=== PATIENT | female | born 1985 | race Caucasian/White ===

== ENCOUNTER 2020-06-27 17:54 | Observation (INO) | payer BC ==
[2020-06-27 18:44] VITALS: BMI 32.5
[2020-06-27 19:47] LABS: ALT (SGPT) 7 U/L (8-55); AST (SGOT) 11 U/L (5-34); Albumin 3.1 g/dL (3.5-5.0); Alkaline Phosphatase 112 U/L (40-110); Anion Gap 14 mmol/L (10-20); BUN (Urea Nitrogen) 7 mg/dL (7.0-18.7); Bilirubin, Total 0.3 mg/dL (0.2-1.2); Calc. Creatinine Clearance 199 mL/min (70-130); Calcium 8.8 mg/dL (7.8-10.44); Carbon Dioxide 19 mmol/L (22-29); Chloride 108 mmol/L (98-107); Estimated GFR-MDRD Greater than 90; Glucose 74 mg/dL (70-105); Potassium 3.9 mmol/L (3.5-5.1); Protein, Total 6.1 g/dL (6.0-8.3); Sodium 137 mmol/L (136-145); Uric Acid 4.3 mg/dL (2.6-6.0)
[2020-06-27 19:51] LABS: Creatinine, Urine 31.78 mg/dL (47-110); Protein, Urine Random Quant Less than 10 mg/dL (1-14)
--- NOTE | 2020-06-27 20:06 | ULT ---
ULTRASOUND BIOPHYSICAL PROFILE: 06/27/20 HISTORY: Pre-eclampsia. FINDINGS: A single live intrauterine gestation is seen with heart rate of 140 beats per minute. GUSTAVO measu res 16.5 cm. Placenta is anteriorly located without evidence of placenta previa. OB BIOPHYSICAL PROFILE: tone: 2 breathin movement: 2 Amniotic fluid: 2 IMPRESSION: Ultrasound biophysical profile score is 8 out of 8. POS: MZA
[2020-06-27] MEDS ORDERED: Betamet Acet/Betamet Na Ph 30 MG/5 ML VIAL IM SCH (20:30)
[2020-06-28 02:16] VITALS: TEMP 98.3
[2020-06-28 08:28] VITALS: BP 143/77
[2020-06-28] MEDS ORDERED: NIFEdipine XL 30 MG TAB PO SCH (09:00)
--- NOTE | 2020-06-28 14:11 | PDOC.LDHP ---
Labor and Delivery H&P HPI: 35 y/o at 34 and 4/7 weeks, presents to L&D complaining of high BP readings at home, along with mild Headache, Nausea. Patient has a history of Gastric Bypass, Hyperthyroidsism, Now Hypothyroidism, Ectopic s/p Salpyngectomy, and hx of Preeclampsia. She also has a previous hx of Chronic Hypertension - mostly improved after weight loss, with normal BP noted early in , but BP now trending upwards, with etiology pointing towards additional weight gain and increased maternal cardiac demand, rather than recurrent preeclampsia at this time. Protein in urine is almost undetectable today. CMP and Uric Acid both normal today. DTR's appear normal at this time. BPP was 8/8 tonight. After a long discussion with the patient and this evening, we have decided to admit patient for observation, start BMZ course x2 doses, and initiate Prcardia XL 30mg q Day - as used previously in prior p regnancy. If BP stabilizes, will consider discharging patient to home on modified bedrest, on Procardia XL, and with clinic Follow UP Next week. Patient is hoping for TOLAC as per our last conversation today regarding mode of delivery. Current gestational age (weeks): 34 Due date: 08/04/20 Grav: 4 Para: 2 Current complications: hypertension Abnormal US findings: No Current medications: pre-angeline vitamins Previous surgical history: low tranverse CS Allergies/Adverse Reactions: Allergies Allergy/AdvReac Type Severity Reaction Status Date / Time codeine Allergy Hives Verified 06/27/20 18:45 Social history: none - Physical Exam Vital signs reviewed and normal: yes General: NAD, resting, breathing through contractions Heart: RRR Lungs: nonlabored breathing Abdomen: NTTP Extremeties: trace edema FHT: category 1
--- NOTE | 2020-06-28 15:02 | PDOC.EVN ---
Event Note - Event Note Event Note: 35 y/o at 34 and 5/7 weeks, presented yesterday to L&D complaining of high BP readings at home, along with mild Headache, Nausea. Patient has a history of Gastric Bypass, Hyperthyroidsism, Now Hypothyroidism, Ectopic s/p Salpyngectomy, and hx of Preeclampsia, and Chronic Hypertension. She has had normal BP noted early in , but BP now trending upwards, with etiology pointing towards additional weight gain and increased maternal cardiac demand, rather than recurrent preeclampsia at this time. Protein in urine is almost undetectable today. CMP and Uric Acid both last nightg. DTR's appear normal at this time. BPP was 8/8 yesterday\ BMZ course x2 doses ordered. Procardia XL 30mg q Day started (used previously in prior with success). BP now stable. The pal is to discharge the patient to home after 2nd BMZ dose tonight, on modified bedrest, on Procardia XL 30mg po QD, and with clinic Follow UP Next week. Patient is hoping for TOLAC as per our last conversation today regarding mode of delivery.
== END 2020-06-28 20:45 | disposition home or self-care (01) ==
LOC: L&D/OP 17:54 → L&D 20:09 → L&D/OP 06-28 21:00
PROVIDERS: ADMIT Obstetrics & Gynecology; ATTEND Obstetrics & Gynecology
DX: O10.913 Unspecified pre-existing hypertension complicating pregnancy, third trimester (principal); O99.89 Other specified diseases and conditions complicating pregnancy, childbirth and the puerperium; R51 Headache; R11.0 Nausea; O99.283 Endocrine, nutritional and metabolic diseases complicating pregnancy, third trimester; E03.9 Hypothyroidism, unspecified; O34.211 Maternal care for low transverse scar from previous cesarean delivery; O99.843 Bariatric surgery status complicating pregnancy, third trimester; Z3A.34 34 weeks gestation of pregnancy; Z79.899 Other long term (current) drug therapy; Z88.5 Allergy status to narcotic agent
CPT/HCPCS: 36415; 76819; 80053; 82570; 84156; 84550; 96372; 99285; G0378; J0702

== ENCOUNTER 2020-07-02 17:08 | Inpatient (IN) | payer BC, OTHER ==
[~2020-07-02 17:08] MED LIST: Bupivacaine/Epinephrine 0.25% 30 ML VIAL ONE
[2020-07-02 17:52] VITALS: BMI 33.0
[2020-07-02] MEDS ORDERED: Ibuprofen 800 MG TAB PO PRN (18:02)
[2020-07-02] MEDS ORDERED: Misoprostol 200 MCG TAB PR PRN (18:02)
[2020-07-02] MEDS ORDERED: Lidocaine 1% (PF) 30 ML VIAL SC PRN (18:02)
[2020-07-02] MEDS ORDERED: Diphenoxylate HCl/Atropine Tablet PO PRN ×2 (18:02)
[2020-07-02] MEDS ORDERED: NS / Oxytocin 40 units/1000ml 1,000 ML IV PRN (18:02)
[2020-07-02] MEDS ORDERED: Carboprost 250 MCG/ML AMP IM PRN (18:02)
[2020-07-02] MEDS ORDERED: Labetalol HCl 100 MG/20 ML VIAL ONE (18:03)
[2020-07-02] MEDS ORDERED: Butorphanol Tartrate 1 MG/ML VIAL SLOW IVP PRN (18:05)
[2020-07-02] MEDS ORDERED: Docusate 100 MG CAP PO PRN (18:05)
[2020-07-02] MEDS ORDERED: hydrALAZINE 20 MG/ML VIAL SLOW IVP PRN (18:05)
[2020-07-02] MEDS ORDERED: Ondansetron PF 4 MG/2 ML Vial IVP PRN (18:05)
[2020-07-02] MEDS ORDERED: Promethazine HCl 25 MG/ML VIAL IM PRN (18:05)
[2020-07-02] MEDS ORDERED: NS w/ Oxytocin 10 units 500 ML IV SCH (18:15)
[2020-07-02] MEDS ORDERED: Penicillin G Potassium 5 MILL.UNITS in Sodium Chloride 0.9% 100 ML IVPB SCH (18:15)
[2020-07-02] MEDS: Lactated Ringer's 1,000 ML IV SCH (18:45)
[2020-07-02] MEDS ORDERED: Calcium Gluc 4.6 MEQ/10 ML (100 MG/ML) SLOW IVP PRN (18:52)
[2020-07-02] MEDS ORDERED: Magnesium Sulfate 20 GM/WATER 500 ML BAG IVPB SCH (19:00)
[2020-07-02 19:09] LABS: Creatinine, Urine 78.29 mg/dL (47-110)
[2020-07-02 20:40] LABS: Hemoglobin 9.8 g/dL (12.0-16.0); Mean Corpuscular HGB CONC 33.2 g/dL (32.0-36.0); Mean Corpuscular Hemoglobin 29.7 pg (27.0-31.0); Mean Corpuscular Volume 89.2 fL (78.0-98.0); Mean Platelet Volume 8.9 fL (7.4-10.4); Platelet Count 211 thou/uL (130-400); RBC Distribution Width 11.8 % (11.5-14.5); Red Blood Cell (RBC) Count 3.31 mill/uL (4.20-5.40); White Blood Cell (WBC) Count 7.2 thou/uL (4.8-10.8)
[2020-07-02 21:01] LABS: ALT (SGPT) 11 U/L (8-55); AST (SGOT) 14 U/L (5-34); Albumin 3.1 g/dL (3.5-5.0); Alkaline Phosphatase 115 U/L (40-110); Anion Gap 14 mmol/L (10-20); BUN (Urea Nitrogen) 9 mg/dL (7.0-18.7); Bilirubin, Total 0.3 mg/dL (0.2-1.2); Calc. Creatinine Clearance 202 mL/min (70-130); Calcium 8.5 mg/dL (7.8-10.44); Carbon Dioxide 20 mmol/L (22-29); Chloride 107 mmol/L (98-107); Estimated GFR-MDRD Greater than 90; Globulin 2.9 g/dL (2.4-3.5); Glucose 70 mg/dL (70-105); Potassium 3.7 mmol/L (3.5-5.1); Sodium 137 mmol/L (136-145); Uric Acid 4.3 mg/dL (2.6-6.0)
[2020-07-02 21:19] LABS: Syphilis Antibody Nonreactive (Nonreactive); Syphilis Antibody Index 0.04 S/CO (<1.00 Non-Reactive)
[2020-07-02 22:29] LABS: HBSAg Index 0.17 S/CO (0-0.99); Hep B Surf Ag Non-Reactive S/CO (NonReactive)
[2020-07-03] MEDS: NS w/ Oxytocin 10 units 500 ML IV SCH ×2 (00:25→16:03)
[2020-07-03] MEDS: Acetaminophen 500 MG TAB PO PRN ×2 (00:57→06:39)
[2020-07-03 01:11] VITALS: TEMP 98.1
[2020-07-03] MEDS: Magnesium Sulfate 20 gm/500 ml 20 GM/500 ML BAG IVPB SCH ×2 (04:26→14:46)
[2020-07-03] MEDS: Penicillin G 2.5 MILL.units 2.5 MILL.UNITS in Premix Bag 1 BAG IVPB SCH ×4 (04:27→18:55)
[2020-07-03] MEDS: Lactated Ringer's 1,000 ML IV SCH (07:53)
--- NOTE | 2020-07-03 10:06 | PDOC.LDHP ---
Labor and Delivery H&P HPI: 35 y/o at 35 and 2/7 weeks, with BP now 180s/100s in clinic, c/o of headache all day since she woke up. this increase in BP is despite starting Procardia XL 30mg 5 days ago, initially with excellent BPs. I feel this patient is developing Severe Preeclampsia, with neurological symptoms. She had Preeclampsia previously. BMZ x 2 doses completed last week. We will admit, start magnesium sulfate, and start pitocin. Patient desires a TOLAC. Patient completed BMZ x 2 doses last week, and started Procardia XL 30mh po qd - but BPs are now far more elevated despite therapy. Current gestational age (weeks): 35 Due date: 08/04/20 Grav: 4 Para: 2 Current complications: preeclampsia with severe features, other (Hx of gastric Bypass, hx Right Ectopic with salpyngectomy, hx od preeclampsia, hx of chronic HTN, resolved first 20 weeks of this after weight loss following bariatric surgery.) Abnormal US findings: No Previous surgical history: low tranverse CS Allergies/Adverse Reactions: Allergies Allergy/AdvReac Type Severity Reaction Status Date / Time codeine Allergy Hives Verified 06/27/20 18:45 Social history: none - Physical Exam Vital signs reviewed and normal: yes General: NAD, resting, breathing through contractions Heart: RRR Lungs: CTAB Abdomen: gravid Extremeties: no edema FHT: category 1 - Assessment 1. Severe Preeclampsia with neurological features - moderate persistent headache. 2. Desires TOLAC - Plan Plan: admit to L&D, cervical ripening
[2020-07-03 12:02] LABS: SARS-CoV-2 MS2 Positive; SARS-CoV-2 N Gene Negative; SARS-CoV-2 S Gene Negative; SARS-CoV-2 by NAA Not Detected (NotDetected); SARS-CoV-2 orf1ab Negative
[2020-07-03] MEDS ORDERED: Fentanyl 4 mcg/Bup 0.1% Cadd 100 ML ONE (12:02)
[2020-07-03] MEDS ORDERED: Promethazine HCl 25 MG/ML VIAL IM PRN (12:57)
[2020-07-03] MEDS ORDERED: Lactated Ringer's 500 ML IV PRN (12:57)
[2020-07-03] MEDS ORDERED: EPHEDRINE 25 MG/5 ML SYRINGE SLOW IVP PRN (12:57)
[2020-07-03] MEDS ORDERED: Naloxone HCl 0.4 mg/ml Vial IVP PRN ×2 (12:57)
[2020-07-03] MEDS ORDERED: Acetaminophen 325 MG TAB PO PRN (12:57)
[2020-07-03] MEDS ORDERED: diphenhydrAMINE 50 MG/ML VIAL IVP PRN (12:57)
[2020-07-03] MEDS ORDERED: Ondansetron PF 4 MG/2 ML Vial IVP PRN ×2 (12:57→19:40)
[2020-07-03] MEDS ORDERED: Fentanyl 4 mcg/Bupivacaine 0.1% Cassette 100 ML EPIDURAL SCH (13:00)
[2020-07-03] MEDS ORDERED: Communication Order-Pharmacy FS SCH (13:00)
[2020-07-03] MEDS ORDERED: Bisacodyl 10 MG SUPP PR PRN (19:40)
[2020-07-03] MEDS ORDERED: traMADol HCl 50 MG TAB PO PRN ×2 (19:40)
[2020-07-03] MEDS ORDERED: Preparation H Ointment 28 GM TUBE PR PRN (19:40)
[2020-07-03] MEDS ORDERED: Varicella virus, LIVE 0.5 ML VIAL SC ONE (19:40)
[2020-07-03] MEDS ORDERED: Milk Of Magnesia 30 ML UDCUP PO PRN (19:40)
[2020-07-03] MEDS ORDERED: Measles/Mumps/Rubella 10 MCG/0.5 ML VIAL SC ONE (19:40)
[2020-07-03] MEDS ORDERED: Lanolin Ointment 7 GM TUBE TOP PRN (19:40)
[2020-07-03] MEDS ORDERED: Adacel (T-DAP) 0.5 ML SYRINGE IM ONE (19:40)
[2020-07-03] MEDS ORDERED: Benzocaine-Menthol 82.5 ML CAN TOP PRN (19:40)
[2020-07-03] MEDS ORDERED: NS / Oxytocin 40 units/1000ml 1,000 ML IV SCH (19:45)
[2020-07-03] MEDS: Labetalol HCl 100 MG/20 ML VIAL SLOW IVP SCH (20:52)
[2020-07-03] MEDS ORDERED: Labetalol HCl 100 MG/20 ML VIAL SLOW IVP PRN (22:01)
[2020-07-04] MEDS: Magnesium Sulfate 20 gm/500 ml 20 GM/500 ML BAG IVPB SCH ×2 (00:22→09:59)
[2020-07-04] MEDS: Labetalol HCl 100 MG/20 ML VIAL SLOW IVP SCH ×3 (03:15→13:39)
[2020-07-04] MEDS: Penicillin G 2.5 MILL.units 2.5 MILL.UNITS in Premix Bag 1 BAG IVPB SCH (03:19)
[2020-07-04] MEDS: Docusate Calcium (SURFAK) 240 MG CAP PO SCH ×2 (03:19→14:17)
[2020-07-04] MEDS: Ibuprofen 800 MG TAB PO SCH ×2 (03:19→08:01)
[2020-07-04 07:40] LABS: Hemoglobin 9.8 g/dL (12.0-16.0); Mean Corpuscular HGB CONC 33.1 g/dL (32.0-36.0); Mean Corpuscular Hemoglobin 29.8 pg (27.0-31.0); Mean Platelet Volume 8.5 fL (7.4-10.4); Platelet Count 181 thou/uL (130-400); RBC Distribution Width 11.7 % (11.5-14.5); White Blood Cell (WBC) Count 8.1 thou/uL (4.8-10.8)
[2020-07-04] MEDS: Levothyroxine Sodium 75 MCG TAB PO SCH (08:10)
[2020-07-04] MEDS ORDERED: Labetalol HCl 100 MG/20 ML VIAL SLOW IVP SCH ×2 (08:45→17:15)
[2020-07-04] MEDS ORDERED: Labetalol HCl 100 MG/20 ML VIAL ONE (09:51)
[2020-07-04] MEDS ORDERED: Magnesium Sulfate 20 gm/500 ml 20 GM/500 ML BAG ONE (09:57)
[2020-07-04] MEDS: Lactated Ringer's 1,000 ML IV SCH ×2 (10:41→14:15)
[2020-07-04] MEDS: Ferrous Sulfate 325 MG TAB PO SCH (14:17)
--- NOTE | 2020-07-04 18:43 | PDOC.PP ---
Post Progress Note Post Day #: 1 PO intake tolerated: yes Flatus: yes Ambulation: yes Vital Signs (12 hours) Pulse BP 07/04/20 14:17 68 163/87 H 07/04/20 13:39 68 163/87 H 07/04/20 09:59 73 180/81 H Weight Weight 217 lb - Physical Examination General: NAD Cardiovascular: no m/r/g, RRR Respiratory: clear to auscultation bilaterally Abdominal: + bowel sounds, lochia, no distention Extremities: negative homans (B) Neurological: no gross focal deficits Psychiatric: A&Ox3, normal affect (Will transfer patient off of Magnesium Sulfate later this evening to Procardia XL with Labetolol for break through high BP.) Result Diagrams: 07/04/20 07:21 07/02/20 18:27 Additional Labs: Post Labs Hep Bs Antigen Non-Reactive S/CO (NonReactive) 07/02/20 18:29 Blood Type A POSITIVE 07/02/20 22:10
[2020-07-04] MEDS ORDERED: NIFEdipine XL 60 MG TAB PO SCH (19:30)
[2020-07-05] MEDS ORDERED: Acetaminophen 325 MG TAB PO PRN (03:44)
[2020-07-05] MEDS: Levothyroxine Sodium 75 MCG TAB PO SCH (08:04)
[2020-07-05] MEDS: Ibuprofen 800 MG TAB PO SCH ×2 (08:05→14:30)
[2020-07-05] MEDS: Ferrous Sulfate 325 MG TAB PO SCH ×2 (08:06→09:20)
[2020-07-05] MEDS ORDERED: NIFEdipine XL 60 MG TAB PO SCH (09:00)
[2020-07-05 09:21] VITALS: BP 133/73
[2020-07-05] MEDS: Docusate Calcium (SURFAK) 240 MG CAP PO SCH (10:08)
[2020-07-05] MEDS: NS w/ Oxytocin 10 units 500 ML IV SCH (13:15)
--- NOTE | 2020-07-05 14:33 | PDOC.PP ---
Post Progress Note Post Day #: 2 PO intake tolerated: yes Flatus: yes Ambulation: yes Vital Signs (12 hours) Pulse BP Pulse Ox 07/05/20 10:50 98 07/05/20 09:20 66 133/73 Weight Weight 217 lb - Physical Examination General: NAD Cardiovascular: no m/r/g, RRR Respiratory: clear to auscultation bilaterally, non-labored breathing Abdominal: + bowel sounds, lochia, no distention, appropriately TTP Extremities: negative homans (B) Neurological: no gross focal deficits Psychiatric: A&Ox3 (DC home. F/U in 72 hours in clinic for BP check.), normal affect Result Diagrams: 07/04/20 07:21 07/02/20 18:27 Additional Labs: Post Labs Hep Bs Antigen Non-Reactive S/CO (NonReactive) 07/02/20 18:29 Blood Type A POSITIVE 07/02/20 22:10
--- NOTE | 2020-07-06 02:39 | DN ---
DATE OF PROCEDURE: 07/03/2020 TIME: At 1917 hours central daylight savings time. PREOPERATIVE DIAGNOSES: Intrauterine at 35 weeks and 3 days with severe preeclampsia with neurologic severe features. POSTOPERATIVE DIAGNOSES: Intrauterine at 35 weeks and 3 days with severe preeclampsia with neurologic severe features. PROCEDURE: Spontaneous vaginal delivery over a first-degree laceration of the perineum. FINDINGS: Viable male , weighing 2626 g or 5 pounds 13 ounces. Apgars 8 and 9. QUANTITATIVE BLOOD LOSS: 305 mL. COMPLICATIONS: None. PROCEDURE IN DETAIL: The patient presented to [facility] where she was admitted to the labor and delivery service. The patient underwent a normal and uneventful labor with normal cervical dilatation until she was found to be completely dilated. She was then allowed to push and was able to bring the baby down and delivered the baby in a vertex presentation without difficulties. Once the head delivered in occiput anterior position, the shoulders followed spontaneously along with the rest of the baby's body. Once out the baby's mouth and nose were bulb suctioned. The cord was clamped and cut and baby was handed to waiting attendants. Cord blood was collected. Gentle fundal massage was performed and the placenta delivered intact without problems. Hemostasis was assured. Quantitative blood loss was calculated. Inspection of the cervix, vaginal vault, and perineum did not reveal any lacerations needing suturing. Once again, hemostasis was within normal limits and the patient was allowed to recover in the labor and delivery room. Baby went to nursery. Job ID: [id number]
== END 2020-07-05 16:27 | disposition home or self-care (01) | DRG 807 ==
LOC: L&D/OP 17:08 → L&D 20:29 → 3SW 07-05 10:47
PROVIDERS: ADMIT Obstetrics & Gynecology; ATTEND Obstetrics & Gynecology
PROC: 10E0XZZ Delivery of Products of Conception, External Approach (ICD-10-PCS; principal; 2020-07-03)
PROC: 0HQ9XZZ Repair Perineum Skin, External Approach (ICD-10-PCS; 2020-07-03)
DX: O11.4 Pre-existing hypertension with pre-eclampsia, complicating childbirth (principal); Z37.0 Single live birth; Z98.84 Bariatric surgery status; Z3A.35 35 weeks gestation of pregnancy; O10.92 Unspecified pre-existing hypertension complicating childbirth; O70.0 First degree perineal laceration during delivery; Z20.828 Contact with and (suspected) exposure to other viral communicable diseases
CPT/HCPCS: 36415; 51702; 80053; 82570; 84156; 84550; 85027; 86780; 86850; 86900; 86901; 87340; 87635; 88307; 99285; J2540; J2590; J3475; J3490; U0003